=== PATIENT | female | born 1960 | race Caucasian/White ===

== ENCOUNTER 2017-04-14 10:06 | Emergency (ER) | payer OTHER ==
--- NOTE | 2017-04-16 13:09 | ER ---
ADMIT: 04/14/2017 RM/LOC: ER [facility] MR#: [id number] [place], [place] [id number] [address] [place] [address] Emergency Room Report SEX: F AGE: 56 : 1960 DATE: 04/14/2017 The patient is a 56-year-old female with past medical history of hypertension, diabetes, and breast cancer, came to the ER with chief complaint of high blood pressure, allegedly blood pressure was 200 at home. The patient denies any headaches, visual changes, nausea, vomiting, chest pain, or shortness of breath. In the ER, the patient's blood pressure systolic was 160s/95, the patient was in no pain or distress. Head and neck were negative. Chest is clear. Normal heart sounds. Abdomen is soft. There are no pulsating masses in the abdomen. Neural exam is grossly normal. The patient was reassured, and I talked to the patient 4 times as she is very anxious about the number, systolic blood pressure. The patient was told to have a diary of the blood pressures and follow up with the primary doctor and was mentioned that at the moment there is no hypertensive emergency or urgency, and there are no signs of end-organ damage, and there is no need for any intervention in the ER. The patient acknowledged she understood and discharged to home. Gurdeep Savage MD/ zackery JOB #: [id number] CC: Gurdeep Savage MD, Attending Physician Anthony Bowers MD, Family Physician
== END 2017-04-14 12:20 | disposition home or self-care (01) ==
LOC: ER 10:06
DX: I10 Essential (primary) hypertension (principal); E11.9 Type 2 diabetes mellitus without complications; Z85.3 Personal history of malignant neoplasm of breast; Z90.12 Acquired absence of left breast and nipple; Z98.890 Other specified postprocedural states; Z79.899 Other long term (current) drug therapy